=== PATIENT | female | born 1955 | race Caucasian/White ===

== ENCOUNTER → 2018-05-15 | Outpatient (CLI) | payer OTHER ==
[~2018-05-15] MED LIST: PROTONIX40 MG PO; VICODIN 5-5001 EACH PO
== END ==
LOC: M.RAD 09:20
DX: M85.89 Other specified disorders of bone density and structure, multiple sites (principal); D05.12 Intraductal carcinoma in situ of left breast; Z78.0 Asymptomatic menopausal state

== ENCOUNTER → 2018-06-07 | Outpatient (CLI) | payer OTHER ==
--- NOTE | 2018-06-10 20:01 | ONC ---
[place] [address] RADIATION ONCOLOGY NOTE Name: BUBBA ÍDAZ Room: [facility]#: [id number] Admission: 06/07/18 Attend Phys: Ru Grimes MD Discharge: Date of : 55 Report #: [id number] THIS REPORT FOR: //name// CC: Ru Brandt MD DATE OF SERVICE: 06/07/2018 REFERRING PHYSICIANS: Ludwin Allen DO; Gail Landon MD; Johana Spain DO. [facility] phone is [phone]. 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 INTERVAL NOTE: The patient denied having any nipple discharge from the right breast. She denied having any nipple discharge from the left breast. She denied having any suspicious palpable masses involving the left breast. She denied having any suspicious palpable masses involving the right breast. MEDICATIONS: Include simvastatin and vitamin D. 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 Cigarettes: she smoked less than a pack a day for about 4 years. She quit smoking at age of 31. REVIEW OF SYSTEMS: RESPIRATORY: Breathing was stable. She was not short of breath during her appointment. MUSCULOSKELETAL: She had good range of motion in her extremities. PHYSICAL EXAMINATION: With my nurse, Carmen Hinton, present: VITAL SIGNS: The patient weighed 223.8 pounds on 06/07/2018. She was 199.2 pounds on 05/30/2017. On 06/07/2018, blood pressure was 94/68, pulse 70, respirations 18, oxygen saturation 98% on room air and she was seen with my nurse, Carmen Hinton, present. LYMPH NODES: She had no palpable cervical, supraclavicular, or axillary lymphadenopathy. HEART: Had a regular rate and rhythm without murmur. LUNGS: were clear to auscultation. BREASTS: Left breast had no suspicious palpable masses. Right breast had no suspicious palpable masses. The left breast is slightly more tender than the right breast to palpation. ABDOMEN: Not tender. Spleen was not palpable. Liver was at the costal margin. EXTREMITIES: Had no clubbing, cyanosis or edema. RADIOLOGIC DATA: The patient had a bilateral mammogram on 05/15/2018, [place] [address] RADIATION ONCOLOGY NOTE Name: BUBBA DÍAZ Room: [facility]#: [id number] Admission: 06/07/18 Attend Phys: Ru Grimes MD Discharge: Date of : 55 Report #: [id number] revealed benign findings. ASSESSMENT AND PLAN: 1. History of ductal carcinoma in situ, left breast- There is no evidence of breast cancer at this time. A requisition was given to the patient for a bilateral mammogram in 05/2019. The patient was asked to schedule a follow up appointment to see me afterwards. 2. Hyperlipidemia- The patient takes simvastatin and that is managed by her referring physicians. 3. Vitamin D levels- The patient follows up with her referring physicians with regards to her vitamin D levels and that is managed by them as well. Thank you for allowing me to participate in the care of this patient. <ELECTRONICALLY SIGNED> By: Ru Grimes MD 06/10/182000 1232 16Ru Grimes MD /nt
== END ==
LOC: M.RTH 02:11
DX: Z08 Encounter for follow-up examination after completed treatment for malignant neoplasm (principal); E78.5 Hyperlipidemia, unspecified; Z85.3 Personal history of malignant neoplasm of breast

== ENCOUNTER → 2019-05-21 | Outpatient (CLI) | payer OTHER | LOC: M.RAD 08:46 | DX: Z12.31 Encounter for screening mammogram for malignant neoplasm of breast (principal) ==

== ENCOUNTER → 2019-07-27 | Outpatient (CLI) | payer OTHER ==
--- NOTE | ~2019-07-27 | ONC ---
[place] [address] RADIATION ONCOLOGY NOTE Name: BUBBA DÍAZ Room: [facility]#: [id number] Admission: 07/27/19 Attend Phys: Ru Grimes MD Discharge: Date of : 55 Report #: [id number] THIS REPORT FOR: //name// CC: Ru Spain DATE OF SERVICE: 07/27/2019 REFERRING PHYSICIANS: Johana Spain DO; Ludwin Allen DO; Gail Landon MD. [facility] phone is [phone]. 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 INTERVAL NOTE: The patient denied having any nipple discharge from the right breast. She denied having any nipple discharge from the left breast. She denied having any suspicious palpable masses involving the left breast. She denied having any suspicious palpable masses involving the right breast. MEDICATIONS: Include simvastatin and vitamin D. 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 Cigarettes, she smoked less than a pack per day for about 4 years. She quit smoking at the age of 31. REVIEW OF SYSTEMS: RESPIRATORY: Breathing was stable. She was not short of breath during her appointment. MUSCULOSKELETAL: She had good range of motion in her extremities. PHYSICAL EXAMINATION: With my nurse, Carmen Jamaal, present: VITAL SIGNS: The patient weighed 241.4 pounds on 07/27/2019, 223.8 pounds on 06/07/2018 and on 07/27/2019 blood pressure was 125/73, pulse 65, respirations 20, oxygen saturation was 98%. LYMPH NODES: She had no palpable cervical or supraclavicular or axillary lymphadenopathy. HEART: Had a regular rate and rhythm without murmur. LUNGS: Clear to auscultation. BREASTS: Left breast had no suspicious palpable masses. Right breast had no suspicious palpable masses. ABDOMEN: Nontender. Spleen is not palpable. Liver was at the costal margin. EXTREMITIES: Had no clubbing, cyanosis or edema. RADIOLOGIC DATA: Bilateral mammogram from 05/21/2019 revealed benign findings and routine annual screening [place] [address] RADIATION ONCOLOGY NOTE Name: BUBBA DÍAZ Room: [facility]#: [id number] Admission: 07/27/19 Attend Phys: Ru Grimes MD Discharge: Date of : 55 Report #: [id number] ASSESSMENT AND PLAN: 1. History of ductal carcinoma in situ, left breast. There is no evidence of breast cancer at this time. Requisition was given to the patient for bilateral mammogram in about May or June 2020 and the patient was asked to schedule a followup appointment to see me afterwards. 2. Hyperlipidemia. The patient takes simvastatin and that is managed by referring physicians. 3. Vitamin D levels. The patient follows up with her referring physicians with regards to her vitamin D levels and that is managed by them as well. Thank you for allowing me to participate in the care of this patient. By: [id number] [id number] Grimes MD /nt
== END ==
LOC: M.RTH 06-15 12:30
DX: Z08 Encounter for follow-up examination after completed treatment for malignant neoplasm (principal); E78.5 Hyperlipidemia, unspecified; Z85.3 Personal history of malignant neoplasm of breast

== ENCOUNTER → 2020-06-18 | Outpatient (CLI) | payer OTHER | LOC: M.RAD 13:20 | PROVIDERS: ATTEND Radiology Radiation Oncology | DX: Z12.31 Encounter for screening mammogram for malignant neoplasm of breast (principal) ==

== ENCOUNTER → 2020-06-27 | Outpatient (CLI) | payer OTHER ==
--- NOTE | ~2020-06-27 | ONC ---
[address] [address] RADIATION ONCOLOGY NOTE Name: BUBBA DÍAZ Room: [facility]#: [id number] Admission: 06/27/20 Attend Phys: Ru Grimes MD Discharge: Date of : 55 Report #: [id number] THIS REPORT FOR: //name// CC: Ru Spain DATE OF SERVICE: 06/27/2020 RADIATION ONCOLOGY FOLLOWUP NOTE [facility] phone is [phone]. 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 INTERVAL NOTE: The patient denied having any nipple discharge from the right breast. The patient denied having any nipple discharge from the left breast. The patient denied having any suspicious palpable masses involving the left breast. The patient denied having any suspicious palpable masses involving the right breast. MEDICATIONS: Include simvastatin and vitamin D supplements. 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 Cigarettes, she smoked less than a pack per day for about 4 years. She quit smoking at the age of 31. REVIEW OF SYSTEMS: RESPIRATORY: Breathing was stable. She was not short of breath during her appointment. MUSCULOSKELETAL: She had good range of motion in her extremities. PHYSICAL EXAMINATION: With my nurse, Carmen Hinton, present: VITAL SIGNS: The patient weighed 247 pounds on 06/27/2020. The patient weighed 241.4 pounds on 07/27/2019 and on 06/27/2020, blood pressure is 124/68, pulse 69, respirations 20, oxygen saturation was 96%, temperature was 98.3 degrees Fahrenheit. LYMPH NODES: The patient had no palpable cervical or supraclavicular or axillary lymphadenopathy. HEART: Had a regular rate and rhythm without murmur. LUNGS: Clear to auscultation. BREASTS: Left breast had no suspicious palpable masses. Right breast had no suspicious palpable masses. ABDOMEN: Nontender. Spleen was not palpable. Liver was at the costal margin. EXTREMITIES: Had no clubbing, cyanosis[place] [address] RADIATION ONCOLOGY NOTE Name: BUBBA DAÍZ Room: [facility]#: [id number] Admission: 06/27/20 Attend Phys: Ru Grimes MD Discharge: Date of : 55 Report #: [id number] RADIOLOGIC DATA: From 06/18/2020 showed benign findings. ASSESSMENT AND PLAN: 1. History of ductal carcinoma in situ of the left breast. There is no evidence of breast cancer at this time. Requisition was given to the patient for bilateral mammogram to be done in about 1 year and the patient was asked to schedule a followup appointment to see me afterwards. 2. Hyperlipidemia. The patient takes simvastatin and that is managed by her referring physicians. 3. Vitamin D levels. The patient takes vitamin D supplements and that is managed by referring physicians as well. Thank you for allowing me to participate in the care of this patient. By: 1139 [id number] Grimes MD /nt
== END ==
LOC: M.RTH 10:30
PROVIDERS: ATTEND Radiology Radiation Oncology
DX: Z08 Encounter for follow-up examination after completed treatment for malignant neoplasm (principal); E78.5 Hyperlipidemia, unspecified; Z85.3 Personal history of malignant neoplasm of breast; Z92.3 Personal history of irradiation